=== PATIENT | female | born 1965 | race Caucasian/White ===

== ENCOUNTER → 2018-12-07 | Outpatient (CLI) | payer MEDICAID ==
--- NOTE | 2018-12-08 08:13 | KCIC ---
BILATERAL SCREENING MAMMOGRAM History: Routine screening. Comparison: Bilateral mammogram July 31, 2013. Technique: Routine bilateral digital mammogram views were obtained. Findings: Breast Tissue Density B : There are scattered areas of fibroglandular density. There are no dominant masses, suspicious microcalcifications, or architectural distortion. IMPRESSION: No mammographic evidence of malignancy. Recommend routine screening. BI-RADS category 1: Negative. The images were reviewed with computer aided detection. Patient information is entered into the reminder system with a target due date for the next screening mammogram. Mammography is the most sensitive method for finding small breast cancers, but it does not detect them all and is not a substitute for careful clinical examination. A negative mammogram does not negate a clinically suspicious finding and should not result in delay in biopsying a clinically suspicious abnormality. "Our facility is accredited by the [employer] Mammography Program." Electronically signed by: Toribio Velazquez MD (12/08/2018 8:09 AM) [id number]
== END | disposition home or self-care (01) ==
LOC: KCIC MAMMO 12:23
PROVIDERS: ATTEND Internal Medicine
DX: Z12.31 Encounter for screening mammogram for malignant neoplasm of breast (principal)
CPT/HCPCS: 77067

== ENCOUNTER → 2019-09-05 | Outpatient (CLI) | payer MEDICAID ==
--- NOTE | 2019-09-05 09:15 | RAD ---
Examination: Ultrasound abdomen complete HISTORY: History of hyperlipidemia, elevated liver function tests. COMPARISON: None available. FINDINGS: The visualized pancreas grossly appears unremarkable. The aorta, IVC are poorly visualized due to bowel gas. Changes of cholecystectomy. The liver length measures 17 cm. The right kidney measures 9.3 x 3.7 x 3.9 cm . The left kidney measures 10.2 x 4.8 x 5.2 cm. The spleen measures 9 cm in length. IMPRESSION: Unremarkable exam. Electronically signed by: Jason Mendes MD (09/05/2019 9:12 AM) [id number]
== END | disposition home or self-care (01) ==
LOC: US 08:40
PROVIDERS: ATTEND Internal Medicine
DX: E78.5 Hyperlipidemia, unspecified (principal); R79.89 Other specified abnormal findings of blood chemistry; R94.5 Abnormal results of liver function studies; Z90.49 Acquired absence of other specified parts of digestive tract
CPT/HCPCS: 76700

== ENCOUNTER 2020-04-18 12:39 | Emergency (ER) | payer OTHER, MEDICAID ==
[~2020-04-18] VITALS: Ht 160 cm; Wt 65.9 kg
[2020-04-18 12:47] VITALS: BP 128/93
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
[2020-04-18] MEDS ORDERED: TRAM50TA PO (14:09)
[2020-04-18] MEDS ORDERED: CYCL10TA2 PO (14:09)
== END 2020-04-18 14:20 | disposition home or self-care (01) ==
LOC: ER 12:39
DX: M54.2 Cervicalgia (principal); I10 Essential (primary) hypertension; R07.89 Other chest pain; F17.200 Nicotine dependence, unspecified, uncomplicated; Z95.1 Presence of aortocoronary bypass graft; Z88.1 Allergy status to other antibiotic agents
CPT/HCPCS: 71250; 99284-25